=== PATIENT | male | born 1975 | race Caucasian/White ===

== ENCOUNTER 2021-04-06 19:58 | Inpatient (IN) ==
[2021-04-06] MEDS ORDERED: Isovue-370 500 ML BOTTLE IVP ONE (20:16)
[2021-04-06] MEDS ORDERED: 0.9 % Sodium Chloride 1,000 ML IV ONE ×2 (20:19→21:50)
[2021-04-06] MEDS ORDERED: Hydrocortisone Sodium Succ 100 MG/2 ML VIAL IVP ONE (20:19)
[2021-04-06 20:37] LABS: VBG HCO3 19 mEq/L (21-27); VBG PCO2 34 mmHg (41-51); VBG PH 7.36 pH Units (7.32-7.42); VBG PO2 47 mmHg (25-50)
[2021-04-06 20:40] LABS: Basophils % 0.3 %; Eosinophils % 0.3 %; Hemoglobin 20.4 g/dL (12.9-16.9); Immature Granulocytes % 0.5 % (0-4); Lymphocytes # 1.9 K/mcL (0.6-4.6); Mean Corpuscular Hemoglobin 30.6 pg (28.0-33.3); Mean Corpuscular Volume 87.4 fL (83.0-100.0); Mean Platelet Volume 10.9 fL (9.4-12.4); Monocytes # 1.2 K/mcL (0.0-1.3); Monocytes % 9.2 %; Neutrophils # 9.7 K/mcL (1.6-8.9); Platelet Count 373 K/mcL (140-400); Red Blood Count 6.67 M/mcL (4.19-5.50); Red Cell Distribution Width 13.4 % (11.5-14.5); Segmented Neutrophils % 74.7 %
[2021-04-06 20:41] LABS: Hematocrit 58.3 % (37.5-50.1)
[2021-04-06 21:00] LABS: Bacteria,Urine Few per hpf (None-Few); Bilirubin,Urine Small (Negative); Blood,Urine Negative (Negative); Clarity,Urine Turbid (Clear); Color,Urine Yellow (Yellow); Glucose,Urine (UA) 30 mg/dL (Normal); Hyaline Casts,Urine Many per lpf (None Seen); Ketones,Urine Trace mg/dL (Negative); Leukocyte Esterase,Urine Trace (Negative); Mucus,Urine Few per lpf (None-Few); Nitrite,Urine Negative (Negative); Protein,Urine 50 mg/dL (Neg-Trace); RBC,Urine 0-3 per hpf (0-3); Specific Gravity,Urine 1.025 (1.010-1.025); Squamous Epithelial Cell,Urine Few per hpf (None-Few)
[2021-04-06 21:22] LABS: Albumin 4.4 g/dL (3.5-5.7); Albumin/Globulin Ratio 1.3 (1.1-2.2); Bilirubin,Direct 0.2 mg/dL (0.0-0.2); Bilirubin,Indirect 0.4 mg/dL (0.0-1.0); Bilirubin,Total 0.6 mg/dL (0.3-1.0); Calcium 9.5 mg/dL (8.6-10.3); Globulin 3.4 g/dL (2.4-3.5); Magnesium 1.7 mg/dL (1.6-2.6); Phosphorous 1.9 mg/dL (2.7-4.5); Potassium 4.4 mEq/L (3.5-5.1); Thyroid Stimulating Hormone 0.024 mcIU/mL (0.340-5.600); Total Protein 7.8 g/dL (6.4-8.9); Troponin I 0.03 ng/mL (< 0.04)
[2021-04-06 21:41] LABS: Influenza A PCR Negative (Negative); Influenza B PCR Negative (Negative); Resp. Syncytial Virus PCR Negative (Negative); SARS-CoV-2 by PCR (In House) Negative (Negative)
[2021-04-06] MEDS ORDERED: cefTRIAXone 1,000 MG in 0.9 % Sodium Chloride 10 ML IVP ONE (21:50)
[2021-04-06 23:02] LABS: INR 1.4; Prothrombin Time 15.9 Seconds (9.4-12.1)
[2021-04-07] MEDS ORDERED: *HR* Promethazine 25 MG/ML VIAL IM PRN (01:48)
[2021-04-07] MEDS ORDERED: Naloxone 0.4 MG/ML INJ IVP PRN (01:48)
[2021-04-07] MEDS ORDERED: 0.9 % Sodium Chloride 1,000 ML IVC SCH (02:00)
[2021-04-07] MEDS: 0.9 % Sodium Chloride 1,000 ML IVC SCH ×4 (02:50→23:30)
[2021-04-07 03:24] LABS: Basophils % 0.2 %; Eosinophils % 0.1 %; Hematocrit 51.7 % (37.5-50.1); Immature Granulocytes % 0.7 % (0-4); Lymphocytes # 1.6 K/mcL (0.6-4.6); Mean Corpuscular HGB Conc 33.8 g/dL (31.6-35.5); Mean Corpuscular Hemoglobin 31.1 pg (28.0-33.3); Mean Corpuscular Volume 91.8 fL (83.0-100.0); Mean Platelet Volume 10.9 fL (9.4-12.4); Monocytes # 1.1 K/mcL (0.0-1.3); Monocytes % 7.4 %; Neutrophils # 11.5 K/mcL (1.6-8.9); Platelet Count 225 K/mcL (140-400); Red Blood Count 5.63 M/mcL (4.19-5.50); Red Cell Distribution Width 13.2 % (11.5-14.5); Segmented Neutrophils % 80.6 %; White Blood Count 14.3 K/mcL (4.3-11.1)
[2021-04-07 03:30] LABS: Hemoglobin 17.5 g/dL (12.9-16.9)
[2021-04-07] MEDS: Acetaminophen 325 MG TABLET PO PRN ×2 (04:04→20:26)
[2021-04-07] MEDS: Hydrocortisone Sodium Succ 100 MG/2 ML VIAL IVP SCH ×4 (05:50→23:27)
[2021-04-07] MEDS: MetroNIDAZOLE 500 MG/100 ML 500 MG/100 ML BAG IVPB SCH ×4 (05:50→23:31)
[2021-04-07 06:22] LABS: C.difficile Toxin A/B Gene PCR Not detected (Not detect); Campylobacter by PCR Not detected (Not detect); Enteroaggregative E.coli(EAEC) Not detected (Not detect); Enteropathogenic E.coli(EPEC) Not detected (Not detect); Enterotoxigenic E.coli (ETEC) Not detected (Not detect); Plesiomonas shigelloides PCR Not detected (Not detect); Salmonella PCR Not detected (Not detect); Shigalike tox-prod E coli STEC Not detected (Not detect); Vibrio PCR Not detected (Not detect); Vibrio cholerae PCR Not detected (Not detect); Yersinia enterocolitica PCR Not detected (Not detect)
[2021-04-07 06:23] LABS: Adenovirus F 40/41 PCR Not detected (Not detect); Astrovirus PCR Not detected (Not detect); Cryptosporidium by PCR Not detected (Not detect); Cyclospora cayetanensis PCR Not detected (Not detect); Entamoeba histolytica PCR Not detected (Not detect); Giardia lamblia PCR Not detected (Not detect); Norovirus GI/GII PCR DETECTED (Not detect); Rotavirus A PCR Not detected (Not detect); Sapovirus PCR Not detected (Not detect); Shig/EnteroinvasiveE coli EIEC Not detected (Not detect)
[2021-04-07] MEDS: predniSONE 1 MG TABLET PO SCH (08:18)
[2021-04-07] MEDS: cefTRIAXone 1,000 MG in 0.9 % Sodium Chloride 10 ML IVP SCH (08:19)
[2021-04-07] MEDS: Pantoprazole 40 MG VIAL IVP SCH (10:59)
[2021-04-07] MEDS ORDERED: predniSONE 1 MG TABLET PO SCH (21:00)
[2021-04-08 02:32] LABS: Hematocrit 37.6 % (37.5-50.1); Hemoglobin 13.2 g/dL (12.9-16.9); Immature Granulocytes % 0.3 % (0-4); Lymphocytes # 1.2 K/mcL (0.6-4.6); Lymphocytes % 13.9 %; Mean Corpuscular HGB Conc 35.1 g/dL (31.6-35.5); Mean Corpuscular Hemoglobin 30.6 pg (28.0-33.3); Mean Platelet Volume 11.2 fL (9.4-12.4); Monocytes # 0.5 K/mcL (0.0-1.3); Monocytes % 5.9 %; Platelet Count 193 K/mcL (140-400); Red Blood Count 4.32 M/mcL (4.19-5.50); Segmented Neutrophils % 79.9 %; White Blood Count 8.8 K/mcL (4.3-11.1)
[2021-04-08 02:53] LABS: BUN/Creatinine Ratio 26 (6-26); Blood Urea Nitrogen 23 mg/dL (6-20); Calcium 7.8 mg/dL (8.6-10.3); Carbon Dioxide 21 mEq/L (23-29); Chloride 100 mEq/L (98-107); Glucose 135 mg/dL (70-105); Magnesium 1.8 mg/dL (1.6-2.6); Osmolality,Calculated 274 (280-300); Phosphorous 2.1 mg/dL (2.7-4.5); Sodium 129 mEq/L (136-145); eGFR For African Americans > 60 (> 60); eGFR For Non-African Americans > 60 (> 60)
[2021-04-08] MEDS: Hydrocortisone Sodium Succ 100 MG/2 ML VIAL IVP SCH ×2 (05:30→21:04)
[2021-04-08] MEDS: MetroNIDAZOLE 500 MG/100 ML 500 MG/100 ML BAG IVPB SCH ×2 (05:32→12:32)
[2021-04-08] MEDS ORDERED: 0.9 % Sodium Chloride 1,000 ML IVC SCH (08:00)
[2021-04-08] MEDS: 0.9 % Sodium Chloride 1,000 ML IVC SCH (09:23)
[2021-04-08] MEDS: Pantoprazole 40 MG VIAL IVP SCH (09:44)
[2021-04-08] MEDS: cefTRIAXone 1,000 MG in 0.9 % Sodium Chloride 10 ML IVP SCH (09:45)
[2021-04-08] MEDS: predniSONE 1 MG TABLET PO SCH (09:45)
[2021-04-08] MEDS ORDERED: Hydrocortisone Sodium Succ 100 MG/2 ML VIAL IVP SCH (13:00)
[2021-04-09 01:20] LABS: Basophils % 0.1 %; Hematocrit 37.3 % (37.5-50.1); Hemoglobin 13.2 g/dL (12.9-16.9); Immature Granulocytes % 0.3 % (0-4); Lymphocytes # 1.4 K/mcL (0.6-4.6); Lymphocytes % 11.8 %; Mean Corpuscular HGB Conc 35.4 g/dL (31.6-35.5); Mean Corpuscular Hemoglobin 30.7 pg (28.0-33.3); Mean Corpuscular Volume 86.7 fL (83.0-100.0); Mean Platelet Volume 11.1 fL (9.4-12.4); Monocytes # 0.8 K/mcL (0.0-1.3); Monocytes % 6.6 %; Neutrophils # 9.8 K/mcL (1.6-8.9); Platelet Count 217 K/mcL (140-400); Segmented Neutrophils % 81.2 %; White Blood Count 12.1 K/mcL (4.3-11.1)
[2021-04-09 01:32] LABS: BUN/Creatinine Ratio 22 (6-26); Blood Urea Nitrogen 19 mg/dL (6-20); Calcium 8.4 mg/dL (8.6-10.3); Carbon Dioxide 23 mEq/L (23-29); Chloride 107 mEq/L (98-107); Glucose 114 mg/dL (70-105); Magnesium 2.1 mg/dL (1.6-2.6); Osmolality,Calculated 287 (280-300); Phosphorous 1.5 mg/dL (2.7-4.5); Potassium 3.7 mEq/L (3.5-5.1); Sodium 137 mEq/L (136-145); eGFR For African Americans > 60 (> 60); eGFR For Non-African Americans > 60 (> 60)
[2021-04-09] MEDS: Hydrocortisone Sodium Succ 100 MG/2 ML VIAL IVP SCH (07:18)
[2021-04-09] MEDS: Pantoprazole 40 MG VIAL IVP SCH (07:18)
[2021-04-09] MEDS ORDERED: Potassium Phosphate 44 MEQ in 0.9 % Sodium Chloride 250 ML IVPB ONE (08:04)
[2021-04-09 10:49] VITALS: O2SAT 97
[2021-04-09 16:05] VITALS: BP 143/93; PULSE 63; TEMP 98.3
== END 2021-04-09 17:15 | disposition home or self-care (01) | DRG 872 ==
LOC: 2ANU 19:58 → EMEROOARM 19:58 → SUATTDRO 04-07 00:21 → OBSVTOIN 04-07 00:21 → 2ANU 04-07 01:25
PROVIDERS: ADMIT Internal Medicine; ATTEND Internal Medicine